=== PATIENT | female | born 1960 | race Caucasian/White ===

== ENCOUNTER 2024-05-22 21:08 | Emergency (ER) | payer OTHER, SELFPAY ==
[2024-05-22 21:10] VITALS: BP 144/84
[2024-05-22 21:36] LABS: % Basophils 0.7 % (0-2); % Eosinophils 3.8 % (0-6); % Immature Granulocytes 0.3 % (0-0.5); % Lymphocytes 40.2 % (20.5-51.1); % Monocytes 6.8 % (1.7-9.3); % Neutrophils 48.2 % (42.2-75.2); Absolute Basophils 0.1 10^3/uL (0-0.2); Absolute Eosinophils 0.3 10^3/uL (0-0.7); Absolute Lymphocytes 2.8 10^3/uL (1.2-3.4); Absolute Monocytes 0.5 10^3/uL (0.1-0.6); Absolute Neutrophils 3.4 10^3/uL (1.4-6.5); Hematocrit 40.3 % (37.0-47.0); Hemoglobin 13.6 g/dL (12.0-16.0); Mean Corp Hgb Conc. 33.7 g/dL (33.0-37.0); Mean Corpuscular Hgb 30.8 pg (27.0-31.0); Mean Corpuscular Volume 91.4 fL (81.0-99.0); Mean Platelet Volume 9.3 fL (7.4-10.4); Nucleated Red Blood Cells % 0 %; Platelet Count 272 10^3/uL (130-400); Red Blood Cell Count 4.41 10^6/uL (4.20-5.40); Red Cell Dist. Width 12.4 % (11.5-14.5)
[2024-05-22 21:50] LABS: ALT (SGPT) 22 U/L (0-35); AST (SGOT) 29 U/L (14-36); Albumin 4.2 g/dl (3.5-5.0); Alkaline Phosphatase 67 U/L (38-126); Blood Urea Nitrogen 20 mg/dl (7-17); Calcium 9.3 mg/dl (8.4-10.2); Carbon Dioxide 32 mmol/L (22-30); Chloride 101 mmol/L (98-107); Glucose 118 mg/dl (70-99); Potassium 3.9 mmol/L (3.5-5.1); Sodium 138 mmol/L (135-145); Total Bilirubin 0.3 mg/dl (0.2-1.3); Total Protein 6.7 g/dl (6.3-8.2); eGFR > 60.00
[2024-05-22 22:02] LABS: Troponin I < 0.012 ng/ml
[2024-05-23 00:38] VITALS: BP 129/72
--- NOTE | 2024-05-23 01:02 | ED.GENMED ---
History of Present Illness
General
Chief Complaint: DVT/Possible Blood Clot
Source: patient
Exam Limitations: none
Time Seen by Provider: 05/23/24 00:19
History of Present Illness
History of Present Illness:
This is a 63 year old female that comes in with c/o pain behind the left knee. State that she just came home from [place] and she felt a lump behind the left knee that was sore. States that she was concerned about a blood clot. Denies any fever,
chills, chest pain, SOB, abd pain, nausea, vomiting, diarrhea, headache.
Past History
Past History
ED Past Medical History: Fibromyalgia, GERD and Hypercholesterolemia
ED Past Surgical History: Orthopedic (Left Sub-talor fusion, Right toe surgery) and Other (Exp lab with adhesions)
Social History
Tobacco: Non-smoker
Alcohol: None
Drug: None
Personal:
Living: with family
Employment: Employed
Family History
Family History: CAD
Review of Systems
Review of Systems
All Other Systems: ROS reviewed and negative except as documented in HPI and ROS
Constitutional: Reports no symptoms; Denies fever or chills
EENT: Reports no symptoms
Respiratory: Reports no symptoms; Denies cough or trouble breathing
Cardiac: Reports no symptoms; Denies chest pain
ABD/GI: Reports no symptoms; Denies abdominal pain, nausea, vomiting or diarrhea
: Reports no symptoms
Musculoskeletal: Reports other (Tendereness behind the left knee)
Skin: Reports no symptoms
Neurological: Reports no symptoms; Denies dizzy or headache
Psychiatric: Reports no symptoms
Phy Exam
General Physical Exam
General Presentation: well appearing and no apparent distress
General age: appears stated age
General Skin: warm and dry
General Habitus: normal
General Mental: alert
General Hydration: appears well hydrated
ENT Exam
ENT Exam: TM's normal, pharynx normal and neck supple
Eye Exam
Eye Exam: EOMI
Cardiovascular Exam
Cardiovascular Exam: regular rate/rhythm, no edema, no murmur and normal peripheral pulses
Pulmonary Exam
Pulmonary Exam: lungs clear, no respiratory distress, no rales, chest non tender, no crackles, no rhonchi, no wheezing and no cough
Musculoskeletal Exam
Musculoskeletal Exam: full ROM, no edema and other (Unable to palpate lump )
Skin Exam
Skin Exam: normal color, warm/dry, no rash and no petechia
Psychiatric Exam
Psychiatric Exam: normal mood/affect
Course
Orders/Labs/Results
Orders:
Orders
05/22/24 21:16
Electrocardiogram (*1) Urgent
Reason for Study: Chest Pain
EKG- Treatment ONCE
05/22/24 21:17
US Periph Venous LOWER Ext LT Urgent
Comment:
Reason For Exam: pain behind L knee, recent 5 hr plane ride
05/22/24 21:29
Complete Blood Count/With Diff Urgent
Comprehensive Metabolic Panel Urgent
Troponin I Urgent
Abnormal Lab Results
05/22/24
21:29
Carbon Dioxide 32 H mmol/L
(22-30)
BUN 20 H mg/dl
(7-17)
Glucose 118 H mg/dl
(70-99)
05/22/24 21:29
05/22/24 21:29
Dehydration. Hyperglycemia, Troponin 0.012
Vital Signs
Initial and Last Documented VS:
Initial Vital Signs
Temp Pulse Resp BP Pulse Ox
99.4 F 78 18 144/84 99
05/22/24 21:10 05/22/24 21:10 05/22/24 21:10 05/22/24 21:10 05/22/24 21:10
Last Documented Vital Signs
Temp Pulse Resp BP Pulse Ox
99.4 F 72 20 129/72 98
05/22/24 21:10 05/23/24 00:38 05/23/24 00:38 05/23/24 00:38 05/23/24 01:11
MDM/Problems Addressed
Differential Diagnosis Includes:
DVT, Bakers cyst,
MDM/Problems Addressed:
This is a 63 year old female that comes in with c/o feeling a lump behind the left knee.
Will check labs and get US.
Explained to patient that the Ultrasound was negative for any DVT. Explained that she can do warm presses behind the knee if this continued to bother her. Tylenol or Ibuprofen as needed for any discomfort. Follow up with the family doctor. Return
with any concerns.
Chronic conditions affecting care:
NA
Acute Exacerbation and/or Progression of Chronic Illness:
NA
*Radiology
Radiology exam reviewed: other (US negative for DVT)
*Pulse Oximetry
Patient hypoxic: no
*EKG
Interpreted by ED Provider?: NA
Rate: EKG- N/A
*Replanting Machine Crew Interpretation
Rate: Replanting Machine Crew- N/A
*Critical Care Note
Total Time (30-74mins, 75-104mins- exclusive of procedures): Not Applicable
ED Attending Note
-
Portions of this chart may have been created with voice recognition software.� Occasional wrong word or��sound alike� substitutions may have occurred due to the inherent limitations of voice recognition software.
Discharge Plan
Departure
Patient Disposition: Home (Routine Discharge)
Date of Disposition: 05/23/24
Time of Disposition: 01:03
Patient with high blood pressure during this ER visit?: No
Condition: Good
Covid-19: Not Applicable
Discharge Problem:
Posterior left knee pain
Instructions: Knee pain - ED discharge instructions
Prescriptions:
No Action
ibuprofen [Advil] 200 MG tablet
400 mg PO PRN PRN (Reason: pain)
cholecalciferol (vitamin D3) [Vitamin D3] 2,000 UNIT tablet
2,000 unit PO DAILY
Wellbutrin
300 mg PO DAILY
Patient Comments:
seems unsure of dose
simvastatin [Zocor] 20 mg Tablet
20 mg PO DAILY
metoprolol succinate
20 mg PO DAILY
Activity Restrictions/Additional Instructions:
As discussed, your blood work shows that you are a little Dehydration. Please increase your water intake to 8-8oz glasses daily. your Ultrasound is negative for any blood clots. You may use a warm compress behind the knee if this still bothers you.
Follow up with the family doctor for recheck. IF YOU HAVE ANY OTHER CONCERNS PLEASE RETURN TO THE EMERGENCY ROOM
Interventions
Interventions:
*Risk Screen - Suicide Last Done: 05/23/24 00:42
*General Assessment Last Done: 05/23/24 00:42
*Neglect/Abuse Screening Last Done: 05/23/24 00:42
ED- Fall Risk Assessment Last Done: 05/23/24 00:42
*ED COVID-19 Vaccine History Last Done: 05/23/24 00:42
*Nursing Disposition Last Done: 05/23/24 01:11
ED- Cardiac Assessment Last Done: 05/23/24 00:42
ED- Pulmonary Assessment Last Done: 05/23/24 00:42
ED-Peripheral Vascular Assessment Last Done: 05/23/24 00:42
ED-Skin Assessment Last Done: 05/23/24 00:46
Discharge Date and Time
Discharge Date/Time: 05/23/24 01:12
Print Language: INDIAN
== END 2024-05-23 01:12 | disposition home or self-care (01) ==
LOC: EMR 21:08
PROVIDERS: Emergency Medicine; EMERGENCY PHYSICIAN Emergency Medicine; FAMILY PHYSICIAN Internal Medicine
DX: M25.562 Pain in left knee (principal); E78.00 Pure hypercholesterolemia, unspecified; K21.9 Gastro-esophageal reflux disease without esophagitis; M79.7 Fibromyalgia
CPT/HCPCS: 99284; 80053; 84484; 85025; 93005; 93971